=== PATIENT | male | born 1975 | race Caucasian/White ===

== ENCOUNTER 2017-07-18 13:01 | Emergency (ER) | payer MEDICAID ==
[~2017-07-18] VITALS: Ht 170.2 cm; Wt 81.6 kg
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
[~2017-07-18 13:01] MED LIST: Ketorolac 30mg Inj IM ONE; LORazepam Inj 2mg/ml 1ml IM ONE; Lidocaine 1% Plain 30 ml INJ ONE; Tetanus/Diptheria/Pertussis Vaccine 0.5ml Syr IM ONE
[2017-07-18 13:40] LABS: APPEARANCE,URINE CLEAR; BILIRUBIN, URINE NEGATIVE (NEGATIVE); COLOR,URINE PALE YELLOW; GLUCOSE, URINE (UA) NEGATIVE (NEGATIVE); KETONES,URINE NEGATIVE (NEGATIVE); LEUKOCYTE ESTERASE ,URINE NEGATIVE (NEGATIVE); NITRITE,URINE NEGATIVE (NEGATIVE); PH,URINE 6.5 (4.5-8.0); PROTEIN,URINE NEGATIVE (NEGATIVE); UROBILINOGEN,URINE NORMAL MG/DL (0.0-1.0)
[2017-07-18 13:41] LABS: HEMATOCRIT 32.4 % (42.0-52.0); HEMOGLOBIN 11.4 G/DL (14.2-18.0); MEAN CORPUSCULAR VOLUME 91 FL (80-99); PLATELET COUNT 57 K/UL (150-450); RED BLOOD COUNT 3.55 M/UL (4.70-6.10); RED CELL DISTRIBUTION WIDTH 11.6 % (11.6-14.8); WHITE BLOOD COUNT 3.2 K/UL (4.8-10.8)
[2017-07-18 14:11] LABS: POTASSIUM 3.6 MMOL/L (3.5-5.1)
[2017-07-18 14:17] LABS: ANION GAP 11 mmol/L (5-15); BLOOD UREA NITROGEN 10 mg/dL (7-18); CALCIUM 8.3 MG/DL (8.5-10.1); CARBON DIOXIDE 24 MMOL/L (21-32); CHLORIDE 105 MMOL/L (98-107); CREATININE 0.8 MG/DL (0.55-1.30); SODIUM 140 MMOL/L (136-145)
[2017-07-18 14:27] LABS: ALANINE AMINOTRANSFERASE 52 U/L (12-78); ALBUMIN 2.9 G/DL (3.4-5.0); ALBUMIN/GLOBULIN RATIO 0.7 (1.0-2.7); ALKALINE PHOSPHATASE 180 U/L (46-116); ASPARTATE AMINO TRANSFERASE 78 U/L (15-37); BILIRUBIN,TOTAL 1.2 MG/DL (0.2-1.0)
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
[2017-07-18 14:34] LABS: BILIRUBIN,DIRECT 0.6 MG/DL (0.0-0.3)
[2017-07-18 15:20] VITALS: BP 119/69
[2017-07-18] MEDS ORDERED: Bacitracin Oint UD TOPIC ONE (17:15)
[2017-07-18 18:11] VITALS: BP 116/70
[2017-07-18 19:30] VITALS: BP 120/72
[2017-07-18] MEDS ORDERED: TYLENOL EXTRA500 MG ORAL (19:35)
[2017-07-18 20:10] VITALS: BP 120/72
== END 2017-07-18 20:10 | disposition home or self-care (01) ==
LOC: EDBD 13:01 → EMR 14:50
DX: S01.81XA Laceration without foreign body of other part of head, initial encounter (principal); S01.112A Laceration without foreign body of left eyelid and periocular area, initial encounter; V43.52XA Car driver injured in collision with other type car in traffic accident, initial encounter; Y92.410 Unspecified street and highway as the place of occurrence of the external cause; F10.10 Alcohol abuse, uncomplicated; Z23 Encounter for immunization; I10 Essential (primary) hypertension; Z86.69 Personal history of other diseases of the nervous system and sense organs
CPT/HCPCS: 12011; 36415; 70450; 80053; 80307; 80329; 81003; 82248; 83690; 85007; 85025; 90471; 90715; 96372; 99284; J1885; J2001; Z7502